=== PATIENT | male | born 1960 | race Caucasian/White ===

== ENCOUNTER 2024-03-10 09:15 | Inpatient (IN) | payer MEDICAID ==
[~2024-03-10 09:15] MED LIST: Cephalexin 500 MG Cap ONE; Fluconazole 150 MG Tab ONE; Furosemide 20 MG Tab ONE; metFORMIN 500 MG Tab ONE
[2024-03-10] MEDS: Sodium Chloride 0.9% 1,000 ML IV ONE (10:15)
[2024-03-10 10:28] LABS: HEMATOCRIT 32.8 % (40.0-54.0); HEMOGLOBIN 11.3 g/dL (13.0-18.0); MEAN CORPUSCULAR HGB CONC 34.5 g/dL (31.0-35.0); MEAN CORPUSCULAR VOLUME 108 fL (76-96); MEAN PLATELET VOLUME 9.3 fL (6.0-10.0); PLATELET COUNT,PLT 112 K/uL (150-400); RED BLOOD CELL COUNT 3.05 M/uL (4.50-6.50); RED CELL DISTRIBUTION WIDTH 14.2 % (11.0-16.0); WHITE BLOOD CELL COUNT,WBC 6.9 K/uL (4.0-11.0)
[2024-03-10] MEDS: Furosemide 40 MG/4 ML VIAL IVPUSH ONE (10:38)
[2024-03-10] MEDS: Furosemide 40 MG/4 ML VIAL ONE (10:41)
[2024-03-10 10:56] LABS: C-REACTIVE PROTEIN 13.8 mg/L (<5.0); MAGNESIUM 1.9 mg/dL (1.8-2.4)
[2024-03-10 10:57] LABS: A/G RATIO 0.3 (0.8-2.0); ALBUMIN 1.7 g/dL (3.4-5.0); ANION GAP 10.4 mmol/L (5.0-15.0); BILIRUBIN TOTAL 7.6 mg/dL (0.0-1.0); BUN/CREATININE RATIO 3.8 (6-25); CALCIUM 8.4 mg/dL (8.5-10.1); CARBON DIOXIDE,CO2 28.4 mmol/L (21.0-32.0); CREATININE 0.78 mg/dL (0.70-1.30); EST CRCL DRUG DOSING (CG) 93.78 mL/min; POTASSIUM,K 3.8 mmol/L (3.5-5.1); PROTEIN TOTAL,TP 7.3 g/dL (6.4-8.2)
[2024-03-10 11:15] LABS: PLATELET COUNT ESTIMATE DECREASED; SMUDGE CELLS OCCASIONAL
[2024-03-10 11:31] LABS: COLOR,URINE ORANGE
[2024-03-10 11:32] LABS: APPEARANCE,URINE SLIGHTLY CLOUDY (CLEAR); BILIRUBIN,URINE NEGATIVE (NEGATIVE); GLUCOSE,URINE NEGATIVE (NEGATIVE); KETONES,URINE NEGATIVE (NEGATIVE); LEUKOCYTE ESTERASE,URINE NEGATIVE (NEGATIVE); NITRITE,URINE NEGATIVE (NEGATIVE); OCCULT BLOOD,URINE TRACE-INTACT (NEGATIVE); PH,URINE 5.5 (5.0-8.0); PROTEIN,URINE NEGATIVE (NEGATIVE); RBC,URINE 0-5 /HPF; WBC,URINE 0-5 /HPF
[2024-03-10 11:33] LABS: MUCUS,URINE OCCASIONAL /HPF
[2024-03-10] MEDS ORDERED: Sennosides/Docusate Sodium 50-8.6 MG Tab PO PRN (12:07)
[2024-03-10] MEDS: cefTRIAXone 1 GM in Sodium Chloride 0.9% 50 ML IV SCH (14:02)
[2024-03-10] MEDS: Fluconazole 150 MG Tab PO SCH (14:02)
[2024-03-10] MEDS: Gabapentin 300 MG Cap PO SCH (20:27)
[2024-03-10] MEDS ORDERED: Ibuprofen 400 MG Tab PO PRN (22:11)
[2024-03-11] MEDS: Enoxaparin 40 MG/0.4 ML Syringe SUBCUT SCH (08:10)
[2024-03-11] MEDS: Furosemide 40 MG/4 ML VIAL IVPUSH SCH (08:16)
[2024-03-11 08:32] LABS: BASOPHILS ABSOLUTE AUTO 0.06 K/uL (0.02-0.10); BASOPHILS PERCENT AUTO 0.8 % (0.0-0.5); EOSINOPHILS ABSOLUTE AUTO 0.18 K/uL (0.04-0.40); EOSINOPHILS PERCENT AUTO 2.5 % (1.0-5.0); HEMATOCRIT 31.1 % (40.0-54.0); HEMOGLOBIN 10.7 g/dL (13.0-18.0); LYMPHOCYTES ABSOLUTE AUTO 1.54 K/uL (1.50-4.00); LYMPHOCYTES PERCENT AUTO 21.6 % (20.0-40.0); MEAN CORPUSCULAR HGB CONC 34.4 g/dL (31.0-35.0); MEAN CORPUSCULAR VOLUME 108 fL (76-96); MEAN PLATELET VOLUME 9.6 fL (6.0-10.0); MONOCYTES ABSOLUTE AUTO 0.76 K/uL (0.20-0.80); MONOCYTES PERCENT AUTO 10.7 % (3.0-10.0); NEUTROPHILS ABSOLUTE AUTO 4.58 K/uL (2.00-7.50); NEUTROPHILS PERCENT AUTO 64.4 % (45.0-70.0); PLATELET COUNT,PLT 105 K/uL (150-400); RED BLOOD CELL COUNT 2.89 M/uL (4.50-6.50); RED CELL DISTRIBUTION WIDTH 14.2 % (11.0-16.0); WHITE BLOOD CELL COUNT,WBC 7.1 K/uL (4.0-11.0)
[2024-03-11 08:52] LABS: A/G RATIO 0.3 (0.8-2.0); ALBUMIN 1.6 g/dL (3.4-5.0); ANION GAP 7.4 mmol/L (5.0-15.0); BUN/CREATININE RATIO 6.3 (6-25); CALCIUM 8.2 mg/dL (8.5-10.1); CARBON DIOXIDE,CO2 30.7 mmol/L (21.0-32.0); CREATININE 0.8 mg/dL (0.70-1.30); EST CRCL DRUG DOSING (CG) 91.44 mL/min; POTASSIUM,K 3.1 mmol/L (3.5-5.1); PROTEIN TOTAL,TP 7.1 g/dL (6.4-8.2)
[2024-03-11] MEDS ORDERED: Fluconazole 150 MG Tab ONE (14:46)
[2024-03-11] MEDS ORDERED: Furosemide 20 MG Tab ONE (14:46)
[2024-03-11] MEDS ORDERED: metFORMIN 1,000 MG Tab ONE (14:47)
[2024-03-11] MEDS ORDERED: metFORMIN 500 MG Tab ONE (14:52)
[2024-03-11] MEDS ORDERED: metFORMIN 500 MG Tab PO SCH (17:00)
== END 2024-03-11 16:43 | disposition home or self-care (01) | DRG 948 ==
LOC: LB.ED 09:15 → LB.MS 12:04
PROVIDERS: ADMIT Physician Assistant; ATTEND Physician Assistant
DX: R53.81 Other malaise (principal); R62.7 Adult failure to thrive; M10.9 Gout, unspecified; K21.9 Gastro-esophageal reflux disease without esophagitis; M19.90 Unspecified osteoarthritis, unspecified site; E10.9 Type 1 diabetes mellitus without complications; L98.9 Disorder of the skin and subcutaneous tissue, unspecified; Z79.899 Other long term (current) drug therapy; Z98.49 Cataract extraction status, unspecified eye
CPT/HCPCS: 36415; 71045; 80053; 81001; 83605; 83735; 85025; 86140; 96361; 96374; 97161-GP; 99222; 99239; 99284-25; A9270-GY; J0696; J1650; J1940; J3490; J7030

== ENCOUNTER 2024-04-16 19:45 | Inpatient (IN) | payer MEDICAID ==
[2024-04-16] MEDS ORDERED: Sodium Chloride 0.9% 10 ML Syringe FLUSH PRN (19:51)
[2024-04-16 20:44] LABS: BASOPHILS ABSOLUTE AUTO 0.02 K/uL (0.02-0.10); BASOPHILS PERCENT AUTO 0.2 % (0.0-0.5); EOSINOPHILS ABSOLUTE AUTO 0.04 K/uL (0.04-0.40); EOSINOPHILS PERCENT AUTO 0.3 % (1.0-5.0); HEMATOCRIT 31.3 % (40.0-54.0); HEMOGLOBIN 11.2 g/dL (13.0-18.0); LYMPHOCYTES ABSOLUTE AUTO 0.55 K/uL (1.50-4.00); LYMPHOCYTES PERCENT AUTO 4.6 % (20.0-40.0); MEAN CORPUSCULAR HEMOGLOBIN 37.7 pg (27.0-32.0); MEAN CORPUSCULAR HGB CONC 35.8 g/dL (31.0-35.0); MEAN PLATELET VOLUME 8.9 fL (6.0-10.0); MONOCYTES ABSOLUTE AUTO 0.97 K/uL (0.20-0.80); MONOCYTES PERCENT AUTO 8.1 % (3.0-10.0); NEUTROPHILS ABSOLUTE AUTO 10.43 K/uL (2.00-7.50); NEUTROPHILS PERCENT AUTO 86.8 % (45.0-70.0); RED BLOOD CELL COUNT 2.97 M/uL (4.50-6.50); RED CELL DISTRIBUTION WIDTH 14.4 % (11.0-16.0)
[2024-04-16 20:58] LABS: LACTIC ACID 5.5 mmol/L (0.4-2.0)
[2024-04-16 20:59] LABS: MEAN CORPUSCULAR VOLUME 105 fL (76-96); PLATELET COUNT,PLT 81 K/uL (150-400)
[2024-04-16 21:02] LABS: A/G RATIO 0.3 (0.8-2.0); ALANINE AMINOTRANSFERASE,ALT 11 U/L (12-78); ALBUMIN 1.8 g/dL (3.4-5.0); ALKALINE PHOSPHATASE 95 U/L (46-116); ANION GAP 12.6 mmol/L (5.0-15.0); ASPARTATE AMNIOTRANSFERASE,AST 65 U/L (15-37); BILIRUBIN TOTAL 10.2 mg/dL (0.0-1.0); BLOOD UREA NITROGEN,BUN 9 mg/dL (8-26); BUN/CREATININE RATIO 8.7 (6-25); CALCIUM 8.1 mg/dL (8.5-10.1); CARBON DIOXIDE,CO2 28.9 mmol/L (21.0-32.0); CHLORIDE,CL 91 mmol/L (98-107); CREATININE 1.04 mg/dL (0.70-1.30); ESTIMATED GFR 81 mL/min (>60); GLUCOSE RANDOM 151 mg/dL (74-100); LIPASE 36 U/L (16-77); POTASSIUM,K 3.5 mmol/L (3.5-5.1); PRO B-TYPE NATRIUR PEPT,BNPPRO 1228 pg/mL (0-125); PROTEIN TOTAL,TP 7.3 g/dL (6.4-8.2); SODIUM,NA 129 mmol/L (136-145); TROPONIN I HIGH SENSITIVITY 21.3 pg/ml (<=60.4)
[2024-04-16 21:02] LABS: APPEARANCE,URINE SLIGHTLY CLOUDY (CLEAR); COLOR,URINE ORANGE
[2024-04-16 21:03] LABS: BILIRUBIN,URINE UNABLE TO REPORT (NEGATIVE); GLUCOSE,URINE UNABLE TO REPORT mg/dL (NEGATIVE); KETONES,URINE UNABLE TO REPORT mg/dL (NEGATIVE); LEUKOCYTE ESTERASE,URINE UNABLE TO REPORT (NEGATIVE); NITRITE,URINE UNABLE TO REPORT (NEGATIVE); OCCULT BLOOD,URINE UNABLE TO REPORT (NEGATIVE); PROTEIN,URINE UNABLE TO REPORT mg/dL (NEGATIVE); UROBILINOGEN,URINE UNABLE TO REPORT E.U./dL (0.2-1.0)
[2024-04-16 21:05] LABS: WBC CLUMPS,URINE FEW /HPF
[2024-04-16 21:06] LABS: AMORPHOUS SEDIMENT,URINE FEW /HPF; COARSE GRANULAR CASTS,URINE FEW /HPF; FINE GRANULAR CASTS,URINE OCCASIONAL /HPF; RENAL EPITHELIAL CELLS,URINE FEW /HPF; SQUAMOUS EPITHELIAL CELLS,UR FEW /HPF; WBC CASTS,URINE MODERATE /HPF
[2024-04-16] MEDS ORDERED: SODIUM CHLORIDE 0.9% IV ONE (21:48)
[2024-04-16] MEDS ORDERED: VANCOMYCIN IV ONE (21:48)
[2024-04-16] MEDS: Albumin 25% 100 ML IV ONE (22:07)
[2024-04-16] MEDS: Furosemide 40 MG/4 ML VIAL IVPUSH ONE (22:44)
[2024-04-16] MEDS ORDERED: Acetaminophen 325 MG Tab PO PRN (22:51)
[2024-04-16] MEDS: Piperacillin/Tazobactam 4.5 GM in Sodium Chloride 0.9% 100 ML IV ONE (22:53)
[2024-04-16] MEDS: Sodium Chloride 0.9% 1,000 ML IV SCH (22:58)
[2024-04-16] MEDS: VANCOmycin 1.5 GM/300 ML 1.5 GM in Premix Bag 1 BAG IV ONE (23:27)
[2024-04-17] MEDS: Azithromycin 500 MG in Sodium Chloride 0.9% 250 ML IV SCH (03:51)
[2024-04-17] MEDS: Piperacillin/Tazobactam 4.5 GM in Sodium Chloride 0.9% 100 ML IV SCH (05:26)
[2024-04-17] MEDS ORDERED: Piperacillin/Tazobactam 4.5 GM in Sodium Chloride 0.9% 100 ML IV SCH (08:00)
[2024-04-17] MEDS: Thiamine 200 MG/2 ML MDV IVPUSH SCH (08:21)
[2024-04-17 08:23] LABS: HEMOGLOBIN 9.6 g/dL (13.0-18.0); MEAN CORPUSCULAR HEMOGLOBIN 37.8 pg (27.0-32.0); MEAN CORPUSCULAR HGB CONC 35.6 g/dL (31.0-35.0); MEAN CORPUSCULAR VOLUME 106 fL (76-96); MEAN PLATELET VOLUME 9.7 fL (6.0-10.0); PLATELET COUNT,PLT 54 K/uL (150-400); RED BLOOD CELL COUNT 2.54 M/uL (4.50-6.50); RED CELL DISTRIBUTION WIDTH 14.3 % (11.0-16.0); WHITE BLOOD CELL COUNT,WBC 16.9 K/uL (4.0-11.0)
[2024-04-17 08:59] LABS: A/G RATIO 0.3 (0.8-2.0); ALBUMIN 1.4 g/dL (3.4-5.0); ANION GAP 5.9 mmol/L (5.0-15.0); BILIRUBIN TOTAL 8.7 mg/dL (0.0-1.0); BUN/CREATININE RATIO 11.5 (6-25); CALCIUM 7.8 mg/dL (8.5-10.1); CARBON DIOXIDE,CO2 28.9 mmol/L (21.0-32.0); CREATININE 0.96 mg/dL (0.70-1.30); EST CRCL DRUG DOSING (CG) 76.2 mL/min; MAGNESIUM 2.1 mg/dL (1.8-2.4); PHOSPHORUS 2.9 mg/dL (2.5-4.9); POTASSIUM,K 3.8 mmol/L (3.5-5.1); PROTEIN TOTAL,TP 6.1 g/dL (6.4-8.2)
[2024-04-17 09:02] LABS: SMUDGE CELLS OCCASIONAL
[2024-04-17 09:03] LABS: PLATELET COUNT ESTIMATE DECREASED
[2024-04-17] MEDS ORDERED: Sodium Chloride 0.9% 1,000 ML IV SCH (09:30)
[2024-04-17] MEDS: Albumin 25% 100 ML IV ONE (10:23)
[2024-04-17] MEDS: Pantoprazole 40 MG Tab.CR PO SCH (12:32)
[2024-04-17] MEDS: Pantoprazole 40 MG Vial IVPUSH SCH (15:20)
[2024-04-17] MEDS: Gabapentin 300 MG Cap PO SCH (20:00)
[2024-04-17] MEDS: Thiamine 100 MG Tab PO SCH (20:00)
[2024-04-17] MEDS: VANCOmycin 1.5 GM/300 ML 300 ML IV ONE (22:33)
[2024-04-18 08:13] LABS: BASOPHILS ABSOLUTE AUTO 0.03 K/uL (0.02-0.10); BASOPHILS PERCENT AUTO 0.3 % (0.0-0.5); EOSINOPHILS ABSOLUTE AUTO 0.13 K/uL (0.04-0.40); EOSINOPHILS PERCENT AUTO 1.4 % (1.0-5.0); HEMATOCRIT 24.7 % (40.0-54.0); HEMOGLOBIN 8.6 g/dL (13.0-18.0); LYMPHOCYTES ABSOLUTE AUTO 1.48 K/uL (1.50-4.00); LYMPHOCYTES PERCENT AUTO 15.7 % (20.0-40.0); MEAN CORPUSCULAR HEMOGLOBIN 37.1 pg (27.0-32.0); MEAN CORPUSCULAR HGB CONC 34.8 g/dL (31.0-35.0); MEAN CORPUSCULAR VOLUME 107 fL (76-96); MEAN PLATELET VOLUME 9.4 fL (6.0-10.0); MONOCYTES PERCENT AUTO 9.5 % (3.0-10.0); NEUTROPHILS PERCENT AUTO 73.1 % (45.0-70.0); PLATELET COUNT,PLT 67 K/uL (150-400); RED BLOOD CELL COUNT 2.32 M/uL (4.50-6.50); RED CELL DISTRIBUTION WIDTH 14.4 % (11.0-16.0); WHITE BLOOD CELL COUNT,WBC 9.4 K/uL (4.0-11.0)
[2024-04-18 08:38] LABS: A/G RATIO 0.4 (0.8-2.0); ALBUMIN 1.8 g/dL (3.4-5.0); BILIRUBIN TOTAL 8.9 mg/dL (0.0-1.0); BUN/CREATININE RATIO 11.8 (6-25); CALCIUM 8.2 mg/dL (8.5-10.1); CARBON DIOXIDE,CO2 31.1 mmol/L (21.0-32.0); CREATININE 0.85 mg/dL (0.70-1.30); EST CRCL DRUG DOSING (CG) 86.06 mL/min; PROTEIN TOTAL,TP 6.5 g/dL (6.4-8.2)
[2024-04-18 08:51] LABS: ANION GAP 7.8 mmol/L (5.0-15.0)
[2024-04-18 08:52] LABS: POTASSIUM,K 2.9 mmol/L (3.5-5.1)
[2024-04-18] MEDS: Potassium Chloride 20 MEQ Tab.ER PO ONE (11:09)
[2024-04-18 18:23] LABS: LACTATE DEHYDROGENASE TOTAL,BF 41 U/L; LDH FLUID SOURCE Abdomen
[2024-04-18] MEDS: Potassium Chloride 20 MEQ Tab.ER PO SCH (20:27)
[2024-04-19 09:34] LABS: BASOPHILS ABSOLUTE AUTO 0.04 K/uL (0.02-0.10); BASOPHILS PERCENT AUTO 0.6 % (0.0-0.5); EOSINOPHILS ABSOLUTE AUTO 0.17 K/uL (0.04-0.40); EOSINOPHILS PERCENT AUTO 2.7 % (1.0-5.0); HEMOGLOBIN 9.8 g/dL (13.0-18.0); LYMPHOCYTES ABSOLUTE AUTO 1.47 K/uL (1.50-4.00); LYMPHOCYTES PERCENT AUTO 23.1 % (20.0-40.0); MEAN CORPUSCULAR HEMOGLOBIN 37.7 pg (27.0-32.0); MEAN CORPUSCULAR VOLUME 108 fL (76-96); MEAN PLATELET VOLUME 9.7 fL (6.0-10.0); MONOCYTES ABSOLUTE AUTO 0.91 K/uL (0.20-0.80); MONOCYTES PERCENT AUTO 14.3 % (3.0-10.0); NEUTROPHILS ABSOLUTE AUTO 3.77 K/uL (2.00-7.50); NEUTROPHILS PERCENT AUTO 59.3 % (45.0-70.0); PLATELET COUNT,PLT 69 K/uL (150-400); RED CELL DISTRIBUTION WIDTH 14.7 % (11.0-16.0); WHITE BLOOD CELL COUNT,WBC 6.4 K/uL (4.0-11.0)
[2024-04-19 10:08] LABS: A/G RATIO 0.4 (0.8-2.0); ALBUMIN 1.7 g/dL (3.4-5.0); ANION GAP 8.1 mmol/L (5.0-15.0); BILIRUBIN TOTAL 8.4 mg/dL (0.0-1.0); BUN/CREATININE RATIO 10.5 (6-25); CREATININE 0.95 mg/dL (0.70-1.30); POTASSIUM,K 3.1 mmol/L (3.5-5.1); PROTEIN TOTAL,TP 6.4 g/dL (6.4-8.2)
[2024-04-19] MEDS: Spironolactone 100 MG Tab PO SCH (17:53)
[2024-04-20 09:23] LABS: BASOPHILS ABSOLUTE AUTO 0.04 K/uL (0.02-0.10); BASOPHILS PERCENT AUTO 0.6 % (0.0-0.5); EOSINOPHILS ABSOLUTE AUTO 0.24 K/uL (0.04-0.40); EOSINOPHILS PERCENT AUTO 3.4 % (1.0-5.0); HEMATOCRIT 28.8 % (40.0-54.0); HEMOGLOBIN 10.2 g/dL (13.0-18.0); LYMPHOCYTES ABSOLUTE AUTO 1.72 K/uL (1.50-4.00); LYMPHOCYTES PERCENT AUTO 24.1 % (20.0-40.0); MEAN CORPUSCULAR HEMOGLOBIN 37.6 pg (27.0-32.0); MEAN CORPUSCULAR HGB CONC 35.4 g/dL (31.0-35.0); MEAN CORPUSCULAR VOLUME 106 fL (76-96); MEAN PLATELET VOLUME 9.3 fL (6.0-10.0); MONOCYTES ABSOLUTE AUTO 1.24 K/uL (0.20-0.80); MONOCYTES PERCENT AUTO 17.4 % (3.0-10.0); NEUTROPHILS PERCENT AUTO 54.5 % (45.0-70.0); PLATELET COUNT,PLT 66 K/uL (150-400); RED BLOOD CELL COUNT 2.71 M/uL (4.50-6.50); RED CELL DISTRIBUTION WIDTH 14.6 % (11.0-16.0); WHITE BLOOD CELL COUNT,WBC 7.1 K/uL (4.0-11.0)
[2024-04-20 09:45] LABS: A/G RATIO 0.3 (0.8-2.0); ALBUMIN 1.8 g/dL (3.4-5.0); ANION GAP 9.4 mmol/L (5.0-15.0); BILIRUBIN TOTAL 8.3 mg/dL (0.0-1.0); BUN/CREATININE RATIO 8.7 (6-25); CALCIUM 8.3 mg/dL (8.5-10.1); CARBON DIOXIDE,CO2 30.1 mmol/L (21.0-32.0); CREATININE 1.03 mg/dL (0.70-1.30); EST CRCL DRUG DOSING (CG) 71.02 mL/min; POTASSIUM,K 3.5 mmol/L (3.5-5.1); PROTEIN TOTAL,TP 7.1 g/dL (6.4-8.2)
[2024-04-20] MEDS: Gabapentin 300 MG Cap ONE (23:31)
[2024-04-20] MEDS: Potassium Chloride 20 MEQ Tab.ER ONE (23:31)
[2024-04-20] MEDS: Thiamine 100 MG Tab ONE (23:31)
[2024-04-21 08:34] LABS: A/G RATIO 0.4 (0.8-2.0); ALBUMIN 1.9 g/dL (3.4-5.0); BILIRUBIN TOTAL 7.1 mg/dL (0.0-1.0); PROTEIN TOTAL,TP 6.3 g/dL (6.4-8.2)
[2024-04-21 08:55] LABS: BILIRUBIN INDIRECT 4.1 mg/dL (<= 0.7)
[2024-04-21] MEDS: Albuterol/Ipratropium 3.0-0.5 MG/3 ML Neb Soln NEB SCH (14:32)
[2024-04-21] MEDS: Albumin 25% 200 ML IV ONE (14:33)
[2024-04-22] MEDS: Furosemide 40 MG/4 ML VIAL IVPUSH ONE (09:28)
[2024-04-22] MEDS ORDERED: Albumin 25% 200 ML IV ONE (09:32)
[2024-04-22] MEDS: Albumin 25% 12.5 GM/50 ML BAG IV ONE (10:39)
[2024-04-22] MEDS: Piperacillin/Tazobactam 4.5 GM in Sodium Chloride 0.9% 100 ML IV SCH (11:00)
[2024-04-22] MEDS: Albuterol/Ipratropium 3.0-0.5 MG/3 ML Neb Soln NEB SCH (13:43)
[2024-04-22] MEDS ORDERED: Albuterol/Ipratropium 3.0-0.5 MG/3 ML Neb Soln NEB SCH (14:00)
[2024-04-23 10:30] LABS: A/G RATIO 0.5 (0.8-2.0); ALBUMIN 2.1 g/dL (3.4-5.0); ANION GAP 10.9 mmol/L (5.0-15.0); BILIRUBIN TOTAL 6.9 mg/dL (0.0-1.0); BUN/CREATININE RATIO 8.2 (6-25); CALCIUM 8.4 mg/dL (8.5-10.1); CARBON DIOXIDE,CO2 27.6 mmol/L (21.0-32.0); CREATININE 0.97 mg/dL (0.70-1.30); EST CRCL DRUG DOSING (CG) 75.41 mL/min; POTASSIUM,K 4.5 mmol/L (3.5-5.1); PROTEIN TOTAL,TP 6.6 g/dL (6.4-8.2)
[2024-04-23] MEDS ORDERED: 50% Dextrose in Water 50 ML Syringe IVPUSH PRN (19:42)
[2024-04-23] MEDS ORDERED: Glucagon,Human Recombinant 1 MG Vial IM PRN (19:42)
[2024-04-23] MEDS: Insulin Lispro 100 Unit/ML 3 ML KwikPen SUBCUT ONE (19:53)
[2024-04-24] MEDS: Albuterol/Ipratropium 3.0-0.5 MG/3 ML Neb Soln NEB PRN (01:55)
[2024-04-24] MEDS: Insulin Lispro 100 Unit/ML 3 ML KwikPen SUBCUT ONE (02:25)
[2024-04-24] MEDS: Furosemide 40 MG/4 ML VIAL IVPUSH SCH (07:27)
[2024-04-24] MEDS ORDERED: Glucagon,Human Recombinant 1 MG Vial IM PRN (17:33)
[2024-04-24] MEDS ORDERED: 50% Dextrose in Water 50 ML Syringe IVPUSH PRN (17:33)
[2024-04-24] MEDS: Insulin Regular, Human 100 Units/ML 3 ML Vial SUBCUT ONE (18:24)
[2024-04-24] MEDS: Albumin 25% 200 ML IV ONE (18:29)
[2024-04-25] MEDS: Melatonin 3 MG Tab PO PRN (00:13)
[2024-04-25] MEDS ORDERED: 50% Dextrose in Water 50 ML Syringe IVPUSH PRN (08:42)
[2024-04-25] MEDS: Insulin Regular, Human 100 Units/ML 3 ML Vial SUBCUT ONE (09:19)
[2024-04-25 09:57] LABS: APPEARANCE,URINE CLEAR (CLEAR); COLOR,URINE OTHER; PH,URINE 5.5 (5.0-8.0)
[2024-04-25 09:58] LABS: BILIRUBIN,URINE NEGATIVE (NEGATIVE); GLUCOSE,URINE NEGATIVE (NEGATIVE); KETONES,URINE NEGATIVE (NEGATIVE); LEUKOCYTE ESTERASE,URINE NEGATIVE (NEGATIVE); NITRITE,URINE NEGATIVE (NEGATIVE); OCCULT BLOOD,URINE NEGATIVE (NEGATIVE); PROTEIN,URINE NEGATIVE (NEGATIVE); UROBILINOGEN,URINE 0.2 E.U./dL (0.2-1.0)
[2024-04-25 10:35] LABS: A/G RATIO 0.4 (0.8-2.0); BILIRUBIN DIRECT 3.1 mg/dL (0.0-0.3); BILIRUBIN INDIRECT 5.3 mg/dL (<= 0.7); BILIRUBIN TOTAL 8.4 mg/dL (0.0-1.0); PROTEIN TOTAL,TP 6.9 g/dL (6.4-8.2)
[2024-04-26] MEDS ORDERED: 50% Dextrose in Water 50 ML Syringe IVPUSH PRN ×2 (08:44→17:46)
[2024-04-26] MEDS ORDERED: Glucagon,Human Recombinant 1 MG Vial IM PRN ×2 (08:44→17:46)
[2024-04-26] MEDS: Insulin Regular, Human 100 Units/ML 3 ML Vial SUBCUT ONE ×2 (10:01→18:06)
[2024-04-26] MEDS: glipiZIDE 5 MG Tab.ER PO SCH (13:32)
[2024-04-26] MEDS: metFORMIN 500 MG Tab PO SCH (17:45)
[2024-04-26] MEDS: Albumin 25% 200 ML IV ONE (18:06)
[2024-04-27 08:42] LABS: A/G RATIO 0.5 (0.8-2.0); ALBUMIN 2.4 g/dL (3.4-5.0); ANION GAP 9.2 mmol/L (5.0-15.0); BILIRUBIN TOTAL 8.2 mg/dL (0.0-1.0); BUN/CREATININE RATIO 14.1 (6-25); CALCIUM 8.9 mg/dL (8.5-10.1); CREATININE 0.99 mg/dL (0.70-1.30); EST CRCL DRUG DOSING (CG) 73.89 mL/min; HEMOGLOBIN A1C 5.2 % (< 5.7); POTASSIUM,K 4.2 mmol/L (3.5-5.1); PROTEIN TOTAL,TP 6.9 g/dL (6.4-8.2)
[2024-04-27] MEDS: Ondansetron 4 MG/2 ML SDV IVPUSH PRN (12:10)
[2024-04-27] MEDS: Sodium Chloride 0.9% 1,000 ML IV SCH (23:47)
[2024-04-28] MEDS: Glucagon,Human Recombinant 1 MG Vial IM PRN (06:28)
[2024-04-28] MEDS: Glucagon,Human Recombinant 1 MG Vial IVPUSH PRN (06:32)
[2024-04-28 09:13] LABS: HEMATOCRIT 23.2 % (40.0-54.0); MEAN CORPUSCULAR HEMOGLOBIN 38.1 pg (27.0-32.0); MEAN CORPUSCULAR HGB CONC 34.5 g/dL (31.0-35.0); MEAN CORPUSCULAR VOLUME 111 fL (76-96); MEAN PLATELET VOLUME 9.5 fL (6.0-10.0); PLATELET COUNT,PLT 103 K/uL (150-400); RED CELL DISTRIBUTION WIDTH 15.3 % (11.0-16.0); WHITE BLOOD CELL COUNT,WBC 9.2 K/uL (4.0-11.0)
[2024-04-28 09:20] LABS: A/G RATIO 0.5 (0.8-2.0); ANION GAP 9.9 mmol/L (5.0-15.0); BUN/CREATININE RATIO 13.3 (6-25); CALCIUM 8.5 mg/dL (8.5-10.1); CARBON DIOXIDE,CO2 28.2 mmol/L (21.0-32.0); CREATININE 0.98 mg/dL (0.70-1.30); EST CRCL DRUG DOSING (CG) 74.64 mL/min; POTASSIUM,K 4.1 mmol/L (3.5-5.1); PROTEIN TOTAL,TP 6.4 g/dL (6.4-8.2)
[2024-04-28] MEDS: Sennosides/Docusate Sodium 50-8.6 MG Tab PO PRN (10:46)
[2024-04-28] MEDS: Polyethylene Glycol 3350 Powder 17 GM Packet PO PRN (10:46)
[2024-04-28] MEDS: Dextrose 5%-0.9% NaCl 1,000 ML IV SCH (11:25)
[2024-04-29] MEDS: Dextrose 5%-0.45% NaCl 1,000 ML IV SCH (11:04)
[2024-04-29] MEDS: Gabapentin 300 MG Cap PO SCH (16:51)
[2024-04-30] MEDS: Menthol/Zinc Oxide Ointment 113 GM Tube TOP PRN (08:18)
[2024-04-30 09:54] LABS: BASOPHILS ABSOLUTE AUTO 0.08 K/uL (0.02-0.10); BASOPHILS PERCENT AUTO 1.4 % (0.0-0.5); EOSINOPHILS ABSOLUTE AUTO 0.35 K/uL (0.04-0.40); EOSINOPHILS PERCENT AUTO 5.9 % (1.0-5.0); HEMATOCRIT 25.5 % (40.0-54.0); HEMOGLOBIN 8.7 g/dL (13.0-18.0); LYMPHOCYTES ABSOLUTE AUTO 1.15 K/uL (1.50-4.00); LYMPHOCYTES PERCENT AUTO 19.4 % (20.0-40.0); MEAN CORPUSCULAR HEMOGLOBIN 37.5 pg (27.0-32.0); MEAN CORPUSCULAR HGB CONC 34.1 g/dL (31.0-35.0); MEAN CORPUSCULAR VOLUME 110 fL (76-96); MEAN PLATELET VOLUME 9.5 fL (6.0-10.0); MONOCYTES ABSOLUTE AUTO 0.65 K/uL (0.20-0.80); NEUTROPHILS ABSOLUTE AUTO 3.69 K/uL (2.00-7.50); NEUTROPHILS PERCENT AUTO 62.3 % (45.0-70.0); PLATELET COUNT,PLT 115 K/uL (150-400); RED BLOOD CELL COUNT 2.32 M/uL (4.50-6.50); RED CELL DISTRIBUTION WIDTH 15.5 % (11.0-16.0); WHITE BLOOD CELL COUNT,WBC 5.9 K/uL (4.0-11.0)
[2024-04-30 10:15] LABS: A/G RATIO 0.4 (0.8-2.0); ALBUMIN 2.1 g/dL (3.4-5.0); ANION GAP 9.4 mmol/L (5.0-15.0); BILIRUBIN TOTAL 5.7 mg/dL (0.0-1.0); BUN/CREATININE RATIO 11.6 (6-25); CALCIUM 8.2 mg/dL (8.5-10.1); CARBON DIOXIDE,CO2 28.7 mmol/L (21.0-32.0); CREATININE 0.95 mg/dL (0.70-1.30); POTASSIUM,K 4.1 mmol/L (3.5-5.1)
[2024-04-30] MEDS ORDERED: Ondansetron 4 MG Tab.DIS PO PRN (11:33)
[2024-04-30] MEDS: Furosemide 40 MG Tab PO SCH (16:37)
[2024-05-01] MEDS: metFORMIN 500 MG Tab.ER PO SCH (09:58)
== END 2024-05-01 11:55 | disposition left against medical advice (07) | DRG 432 ==
LOC: LB.ED 19:45 → LB.MS 22:51 → UNDOADMIN 23:05 → LB.MS 23:05
PROVIDERS: ADMIT Nurse Practitioner Family; ATTEND Surgery
PROC: 0W9G3ZZ Drainage of Peritoneal Cavity, Percutaneous Approach (ICD-10-PCS; principal; 2024-04-16)
DX: K70.31 Alcoholic cirrhosis of liver with ascites (principal); J10.08 Influenza due to other identified influenza virus with other specified pneumonia; J96.01 Acute respiratory failure with hypoxia; J15.9 Unspecified bacterial pneumonia; E87.1 Hypo-osmolality and hyponatremia; K21.9 Gastro-esophageal reflux disease without esophagitis; M19.90 Unspecified osteoarthritis, unspecified site; E80.6 Other disorders of bilirubin metabolism; E83.42 Hypomagnesemia; D69.59 Other secondary thrombocytopenia; F10.10 Alcohol abuse, uncomplicated; E10.621 Type 1 diabetes mellitus with foot ulcer; L97.529 Non-pressure chronic ulcer of other part of left foot with unspecified severity; Z66 Do not resuscitate; E10.649 Type 1 diabetes mellitus with hypoglycemia without coma; E87.5 Hyperkalemia; E88.09 Other disorders of plasma-protein metabolism, not elsewhere classified; K76.82 Hepatic encephalopathy; K72.10 Chronic hepatic failure without coma; Z79.84 Long term (current) use of oral hypoglycemic drugs; Z79.899 Other long term (current) drug therapy; Z98.49 Cataract extraction status, unspecified eye
CPT/HCPCS: 36415; 49082; 71045; 71046; 71250; 74176; 80053; 80076; 80202; 81001; 81003; 82042; 82140; 82150; 82248; 82607; 82746; 82945; 82947; 83036; 83605; 83615; 83690; 83735; 83880; 84100; 84156; 84157; 84484; 85025; 85379; 87040; 87070; 87081; 87086; 87205; 87804; 87804-59; 88112; 88305; 93005; 94640; 97110-GP; 97161-GP; 97165-GO; 97530-GO; 97530-GP; 97535-GO; 99223; 99232; 99233; 99239; 99285; A0425; A0429; A9270-GY; C1758; J0456; J1610; J1815; J1815-GY; J1940; J2405; J2543; J3372; J3411; J3475; J7030; J7620; J7799; P9047; U0002

== ENCOUNTER 2024-05-03 01:05 | Observation (INO) | payer MEDICAID ==
[2024-05-03] MEDS: Sodium Chloride 0.9% 10 ML Syringe FLUSH PRN (02:02)
[2024-05-03] MEDS: Morphine 4 MG/ML VIAL IVPUSH ONE ×2 (02:04→09:26)
[2024-05-03] MEDS: Ciprofloxacin 500 MG Tab PO ONE (02:04)
[2024-05-03 05:42] LABS: HEMATOCRIT 26.5 % (40.0-54.0); HEMOGLOBIN 9.1 g/dL (13.0-18.0); MEAN CORPUSCULAR HEMOGLOBIN 37.4 pg (27.0-32.0); MEAN CORPUSCULAR HGB CONC 34.3 g/dL (31.0-35.0); MEAN CORPUSCULAR VOLUME 109 fL (76-96); MEAN PLATELET VOLUME 9.4 fL (6.0-10.0); PLATELET COUNT,PLT 119 K/uL (150-400); RED BLOOD CELL COUNT 2.43 M/uL (4.50-6.50); RED CELL DISTRIBUTION WIDTH 15.3 % (11.0-16.0); WHITE BLOOD CELL COUNT,WBC 4.6 K/uL (4.0-11.0)
[2024-05-03 06:12] LABS: ANISOCYTOSIS OCCASIONAL
[2024-05-03 06:13] LABS: POIKILOCYTOSIS OCCASIONAL
[2024-05-03 06:14] LABS: GIANT PLATELETS OCCASIONAL; PLATELET COUNT ESTIMATE DECREASED
[2024-05-03 06:16] LABS: A/G RATIO 0.4 (0.8-2.0); ALBUMIN 1.8 g/dL (3.4-5.0); ANION GAP 3.8 mmol/L (5.0-15.0); BILIRUBIN TOTAL 5.1 mg/dL (0.0-1.0); BUN/CREATININE RATIO 12.9 (6-25); CALCIUM 8.1 mg/dL (8.5-10.1); CREATININE 0.93 mg/dL (0.70-1.30); EST CRCL DRUG DOSING (CG) 76.01 mL/min; POTASSIUM,K 3.8 mmol/L (3.5-5.1); PROTEIN TOTAL,TP 6.4 g/dL (6.4-8.2)
[2024-05-03] MEDS ORDERED: Ibuprofen 400 MG Tab PO PRN (11:22)
[2024-05-03] MEDS ORDERED: Ondansetron 4 MG/2 ML SDV IVPUSH PRN (12:45)
[2024-05-03] MEDS: Gabapentin 300 MG Cap PO SCH (15:01)
[2024-05-03] MEDS: Lactulose Soln 10 GM/15 ML 15 ML UD Cup PO SCH (15:06)
[2024-05-03] MEDS: Spironolactone 100 MG Tab PO SCH (15:06)
[2024-05-03] MEDS: Lactulose Soln 10 GM/15 ML 15 ML UD Cup ONE (15:14)
[2024-05-03] MEDS: Gabapentin 300 MG Cap ONE ×2 (15:14→21:31)
[2024-05-03] MEDS: Spironolactone 100 MG Tab ONE (15:14)
[2024-05-03] MEDS: metFORMIN 500 MG Tab PO SCH (17:59)
[2024-05-03] MEDS: metFORMIN 500 MG Tab ONE (18:00)
[2024-05-03] MEDS: Heparin Sodium 5,000 Units/ML Vial SUBCUT SCH ×2 (19:02→20:34)
[2024-05-03] MEDS: Furosemide 20 MG Tab PO SCH (20:33)
[2024-05-03] MEDS: Spironolactone 100 MG Tab PO ONE (20:33)
[2024-05-03] MEDS ORDERED: Spironolactone 100 MG Tab PO SCH (21:00)
[2024-05-03] MEDS: Furosemide 20 MG Tab ONE (21:30)
[2024-05-04] MEDS: Furosemide 20 MG Tab ONE (07:49)
[2024-05-04] MEDS: Lactulose Soln 10 GM/15 ML 15 ML UD Cup ONE (07:49)
[2024-05-04] MEDS: metFORMIN 500 MG Tab.ER ONE (07:49)
[2024-05-04] MEDS: Ibuprofen 400 MG Tab ONE (07:50)
[2024-05-04] MEDS: Gabapentin 300 MG Cap ONE (07:50)
[2024-05-04] MEDS: Spironolactone 100 MG Tab PO SCH (07:52)
== END 2024-05-04 10:45 ==
LOC: LB.ED 01:05 → LB.MS 11:21
PROVIDERS: ADMIT Surgery; ATTEND Surgery
DX: K70.31 Alcoholic cirrhosis of liver with ascites (principal); K72.10 Chronic hepatic failure without coma; E87.1 Hypo-osmolality and hyponatremia; E11.9 Type 2 diabetes mellitus without complications; K21.9 Gastro-esophageal reflux disease without esophagitis; Z79.84 Long term (current) use of oral hypoglycemic drugs; Z79.899 Other long term (current) drug therapy
CPT/HCPCS: 36415; 80053; 82140; 82947; 85025; 87070; 87075; 87205; 96374; 96376; 99285-25; A0425; A0429; A9270-GY; J1644; J2270; U0002

== ENCOUNTER 2024-05-14 21:33 | Inpatient (IN) | payer MEDICAID ==
[2024-05-14 22:25] LABS: HEMATOCRIT 27.9 % (40.0-54.0); HEMOGLOBIN 9.9 g/dL (13.0-18.0); MEAN CORPUSCULAR HEMOGLOBIN 36.4 pg (27.0-32.0); MEAN CORPUSCULAR HGB CONC 35.5 g/dL (31.0-35.0); MEAN PLATELET VOLUME 9.2 fL (6.0-10.0); RED BLOOD CELL COUNT 2.72 M/uL (4.50-6.50); RED CELL DISTRIBUTION WIDTH 13.2 % (11.0-16.0); WHITE BLOOD CELL COUNT,WBC 5.9 K/uL (4.0-11.0)
[2024-05-14 22:36] LABS: A/G RATIO 0.3 (0.8-2.0); ALBUMIN 1.6 g/dL (3.4-5.0); ANION GAP 9.1 mmol/L (5.0-15.0); BILIRUBIN TOTAL 7.4 mg/dL (0.0-1.0); BUN/CREATININE RATIO 6.3 (6-25); CALCIUM 8.2 mg/dL (8.5-10.1); CARBON DIOXIDE,CO2 26.1 mmol/L (21.0-32.0); CREATININE 0.95 mg/dL (0.70-1.30); MAGNESIUM 1.8 mg/dL (1.8-2.4); POTASSIUM,K 3.2 mmol/L (3.5-5.1); PROTEIN TOTAL,TP 7.1 g/dL (6.4-8.2)
[2024-05-14 22:46] LABS: APPEARANCE,URINE CLEAR (CLEAR); COLOR,URINE ORANGE
[2024-05-14 22:47] LABS: BILIRUBIN,URINE UNABLE TO REPORT (NEGATIVE); GLUCOSE,URINE UNABLE TO REPORT mg/dL (NEGATIVE); KETONES,URINE UNABLE TO REPORT mg/dL (NEGATIVE); LEUKOCYTE ESTERASE,URINE UNABLE TO REPORT (NEGATIVE); NITRITE,URINE UNABLE TO REPORT (NEGATIVE); OCCULT BLOOD,URINE UNABLE TO REPORT (NEGATIVE); PROTEIN,URINE UNABLE TO REPORT mg/dL (NEGATIVE); UROBILINOGEN,URINE UNABLE TO REPORT E.U./dL (0.2-1.0)
[2024-05-14 22:48] LABS: AMORPHOUS SEDIMENT,URINE FEW /HPF; EPITHELIAL CELLS,URINE OCCASIONAL /HPF; MUCUS,URINE FEW /HPF; WBC,URINE 0-5 /HPF
[2024-05-14] MEDS: Morphine 4 MG/ML VIAL IVPUSH ONE (23:27)
[2024-05-14] MEDS: Sodium Chloride 0.9% 10 ML Syringe FLUSH PRN (23:28)
[2024-05-15] MEDS ORDERED: Ondansetron 4 MG Tab.DIS PO PRN (00:14)
[2024-05-15] MEDS: Rifaximin 550 MG Tab PO ONE (01:01)
[2024-05-15] MEDS: Potassium Chloride Riders 10 MEQ in Premix Bag 1 BAG IV ONE (01:11)
[2024-05-15] MEDS: Morphine 4 MG/ML VIAL IVPUSH PRN (05:25)
[2024-05-15] MEDS: metFORMIN 500 MG Tab PO SCH (09:43)
[2024-05-15] MEDS: Spironolactone 100 MG Tab PO SCH (09:43)
[2024-05-15] MEDS: Furosemide 20 MG Tab PO SCH (09:44)
[2024-05-15] MEDS: Gabapentin 300 MG Cap PO SCH (09:44)
[2024-05-15 10:40] LABS: A/G RATIO 0.3 (0.8-2.0); ALBUMIN 1.6 g/dL (3.4-5.0); ANION GAP 8.6 mmol/L (5.0-15.0); BILIRUBIN TOTAL 7.1 mg/dL (0.0-1.0); BUN/CREATININE RATIO 9.3 (6-25); CARBON DIOXIDE,CO2 29.8 mmol/L (21.0-32.0); CREATININE 0.75 mg/dL (0.70-1.30); EST CRCL DRUG DOSING (CG) 88.41 mL/min; POTASSIUM,K 3.4 mmol/L (3.5-5.1); PROTEIN TOTAL,TP 6.8 g/dL (6.4-8.2)
[2024-05-15] MEDS: Potassium Chloride 20 MEQ Tab.ER PO SCH (13:48)
[2024-05-16 10:53] LABS: A/G RATIO 0.3 (0.8-2.0); ALBUMIN 1.5 g/dL (3.4-5.0); ANION GAP 9.3 mmol/L (5.0-15.0); BILIRUBIN TOTAL 5.7 mg/dL (0.0-1.0); BUN/CREATININE RATIO 11.2 (6-25); CALCIUM 8.2 mg/dL (8.5-10.1); CARBON DIOXIDE,CO2 29.3 mmol/L (21.0-32.0); CREATININE 0.89 mg/dL (0.70-1.30); EST CRCL DRUG DOSING (CG) 76.3 mL/min; POTASSIUM,K 4.6 mmol/L (3.5-5.1); PROTEIN TOTAL,TP 6.3 g/dL (6.4-8.2)
== END 2024-05-17 15:20 | disposition other institution (70) | DRG 434 ==
LOC: LB.ED 21:33 → LB.MS 05-15 00:30 → OBSVTOIN 05-17 08:15
PROVIDERS: ADMIT Surgery; ATTEND Surgery
DX: K70.31 Alcoholic cirrhosis of liver with ascites (principal); E87.6 Hypokalemia; H26.9 Unspecified cataract; K21.9 Gastro-esophageal reflux disease without esophagitis; G89.29 Other chronic pain; M19.90 Unspecified osteoarthritis, unspecified site; E11.9 Type 2 diabetes mellitus without complications; F15.90 Other stimulant use, unspecified, uncomplicated; F12.90 Cannabis use, unspecified, uncomplicated; K72.10 Chronic hepatic failure without coma; F10.90 Alcohol use, unspecified, uncomplicated; S91.309A Unspecified open wound, unspecified foot, initial encounter; Z79.84 Long term (current) use of oral hypoglycemic drugs; Z79.899 Other long term (current) drug therapy; Z98.49 Cataract extraction status, unspecified eye; Z89.411 Acquired absence of right great toe; Z86.16 Personal history of COVID-19
CPT/HCPCS: 36415; 80053; 81001; 82140; 82947; 83735; 85027; 96365; 96374; 96375; 96376; 99222; 99231; 99239; 99285-25; A0425; A0428; A9270-GY; G0378; J2270; J3480